=== PATIENT | female | born 1975 | race Caucasian/White ===

== ENCOUNTER 2017-10-04 18:06 | Emergency (ER) | payer BC | END 2017-10-04 20:30 | disposition home or self-care (01) | LOC: FTE 18:06 | DX: S70.12XA Contusion of left thigh, initial encounter (principal); S06.0X0A Concussion without loss of consciousness, initial encounter; R11.2 Nausea with vomiting, unspecified; V49.40XA Driver injured in collision with unspecified motor vehicles in traffic accident, initial encounter | CPT/HCPCS: 70450; 73550; 99284-25 ==

== ENCOUNTER 2017-10-04 23:32 | Emergency (ER) | payer BC ==
[2017-10-05] MEDS: ONDANSETRON (ODT) 4 MG TAB ODT (00:36)
[2017-10-05] MEDS: ACETAMINOPHEN 325 MG TAB PO (00:37)
== END 2017-10-05 00:45 | disposition home or self-care (01) ==
LOC: FTE 23:32
DX: S06.0X0A Concussion without loss of consciousness, initial encounter (principal); V89.2XXA Person injured in unspecified motor-vehicle accident, traffic, initial encounter
CPT/HCPCS: 99283; Z7502

== ENCOUNTER 2018-02-17 09:40 | Emergency (ER) | payer BC ==
[2018-02-17] MEDS: ONDANSETRON (ODT) 4 MG TAB ODT (11:17)
[2018-02-17 11:42] LABS: ADD MAN DIFF? NO
[2018-02-17 11:48] LABS: BASOPHILS % 0.5 % (0.0-2.0); EOSINOPHILS # 0.1 10^3/ul (0.0-0.5); HEMATOCRIT 37.2 % (37.0-47.0); LYMPHOCYTES % 36.6 % (15.0-51.0); MEAN CORPUSCULAR HEMOGLOBIN 29.5 pg (29.0-33.0); MEAN CORPUSCULAR HGB CONC 32.3 g/dl (32.0-37.0); MEAN CORPUSCULAR VOLUME 91.4 fl (82.0-101.0); MONOCYTE # 0.5 10^3/ul (0.3-0.9); MONOCYTES % 8.8 % (0.0-11.0); NEUTROPHIL # 2.9 10^3/ul (1.6-7.5); NEUTROPHILS % 51.9 % (39.0-77.0); PLATELET COUNT 277 10^3/UL (140-415); RED BLOOD COUNT 4.07 10^6/ul (4.20-5.40); RED CELL DISTRIBUTION WIDTH 13.6 % (11.5-14.5)
[2018-02-17 11:48] LABS: WHITE BLOOD COUNT 5.5 10^3/ul (4.8-10.8)
[2018-02-17 11:49] LABS: ADD UMIC NO; UR ASCORBIC ACID 20 mg/dL (NEGATIVE); UR BILIRUBIN (Dip) NEGATIVE (NEGATIVE); UR BLOOD (Dip) NEGATIVE (NEGATIVE); UR CLARITY SLIGHTLY CLOUDY (CLEAR); UR COLOR YELLOW (YELLOW); UR GLUCOSE (Dip) NEGATIVE (NEGATIVE); UR KETONES (Dip) NEGATIVE (NEGATIVE); UR LEUKOCYTE ESTERASE (Dip) NEGATIVE Leu/ul (NEGATIVE); UR NITRITE (Dip) NEGATIVE (NEGATIVE); UR RBC 1 /HPF (0-5); UR SPECIFIC GRAVITY (Dip) 1.009 (1.003-1.030); UR SQUAMOUS EPITHELIAL CELL FEW /HPF (FEW); UR TOTAL PROTEIN (Dip) NEGATIVE (NEGATIVE); UR UROBILINOGEN (Dip) NEGATIVE (NEGATIVE); UR WBC 1 /HPF (0-5)
[2018-02-17 12:14] LABS: ALANINE AMINOTRANSFERASE 28 IU/L (13-69); ALBUMIN 4.7 g/dl (3.3-4.9); ALKALINE PHOSPHATASE 62 IU/L (42-121); ANION GAP 16 (8-16); ASPARTATE AMINO TRANSFERASE 31 IU/L (15-46); BILIRUBIN,INDIRECT 0.4 mg/dl (0-1.1); BILIRUBIN,TOTAL 0.4 mg/dl (0.2-1.3); BLOOD UREA NITROGEN 10 mg/dl (7-20); CALCIUM 9.6 mg/dl (8.4-10.2); CARBON DIOXIDE 29 mmol/L (21-31); CHLORIDE 102 mmol/L (97-110); GLUCOSE 96 mg/dl (70-220); POTASSIUM 3.7 mmol/L (3.5-5.1); SODIUM 143 mmol/L (135-144); TOTAL PROTEIN 8.3 g/dl (6.1-8.1)
== END 2018-02-17 12:39 | disposition home or self-care (01) ==
LOC: FTE 09:40
DX: R42 Dizziness and giddiness (principal); R11.10 Vomiting, unspecified
CPT/HCPCS: 80053; 81001; 81003; 85025; 93005; 99284-25

== ENCOUNTER 2018-08-19 20:26 | Emergency (ER) | payer BC | END 2018-08-20 03:30 | disposition home or self-care (01) | LOC: FTE 20:26 | DX: S02.2XXA Fracture of nasal bones, initial encounter for closed fracture (principal); W50.1XXA Accidental kick by another person, initial encounter; Y92.89 Other specified places as the place of occurrence of the external cause | CPT/HCPCS: 70160; 99283-25 ==

== ENCOUNTER 2018-12-14 11:24 | Emergency (ER) | payer OTHER, BC | END 2018-12-14 12:38 | disposition home or self-care (01) | LOC: FTE 12:38 | DX: R07.89 Other chest pain (principal) | CPT/HCPCS: 71045; 81025; 93005; 99284-25 ==

== ENCOUNTER 2019-06-16 10:15 | Emergency (ER) | payer OTHER, BC | END 2019-06-16 11:58 | disposition home or self-care (01) | LOC: FTE 11:58 | DX: S80.861A Insect bite (nonvenomous), right lower leg, initial encounter (principal); W57.XXXA Bitten or stung by nonvenomous insect and other nonvenomous arthropods, initial encounter; Y92.9 Unspecified place or not applicable | CPT/HCPCS: 99283 ==